=== PATIENT | female | born 1960 | race Caucasian/White ===

== ENCOUNTER 2021-10-04 01:51 | Observation (INO) ==
[2021-10-04 02:52] LABS: Bilirubin,Urine Negative (Negative); Blood,Urine Large (Negative); Clarity,Urine Ex.Turbid (Clear); Color,Urine Dark-Red (Yellow); Glucose,Urine (UA) Normal (Normal); Ketones,Urine Negative (Negative); Leukocyte Esterase,Urine Small (Negative); Nitrite,Urine Negative (Negative); Protein,Urine 200 mg/dL (Neg-Trace); Specific Gravity,Urine 1.022 (1.010-1.025); Urobilinogen,Urine Normal (Normal)
[2021-10-04] MEDS ORDERED: Isovue-370 500 ML BOTTLE IVP ONE (05:17)
[2021-10-04 05:52] LABS: Basophils % 0.1 %; Eosinophils # 0.2 K/mcL (0.0-0.6); Eosinophils % 1.7 %; Hematocrit 33.4 % (35.3-44.9); Hemoglobin 10.8 g/dL (11.5-15.4); Immature Granulocytes % 0.3 % (0-4); Lymphocytes # 2.9 K/mcL (0.6-4.6); Lymphocytes % 29.5 %; Mean Corpuscular HGB Conc 32.3 g/dL (31.6-35.5); Mean Corpuscular Volume 99.1 fL (83.0-100.0); Mean Platelet Volume 10.5 fL (9.4-12.4); Monocytes % 10.7 %; Neutrophils # 5.6 K/mcL (1.6-8.9); Platelet Count 295 K/mcL (140-400); Red Blood Count 3.37 M/mcL (3.82-4.97); Red Cell Distribution Width 12.2 % (11.5-14.5); Segmented Neutrophils % 57.7 %; White Blood Count 9.7 K/mcL (4.3-11.1)
[2021-10-04 06:12] LABS: Alanine Aminotransferase 8 Units/L (7-52); Albumin 3.4 g/dL (3.5-5.7); Albumin/Globulin Ratio 1.2 (1.1-2.2); Alkaline Phosphatase 39 Units/L (34-104); Aspartate Amino Transferase 10 Units/L (13-39); BUN/Creatinine Ratio 24 (6-26); Bilirubin,Indirect 0.3 mg/dL (0.0-1.0); Bilirubin,Total 0.3 mg/dL (0.3-1.0); Blood Urea Nitrogen 14 mg/dL (8-23); Calcium 9.3 mg/dL (8.6-10.3); Carbon Dioxide 26 mEq/L (23-29); Chloride 105 mEq/L (98-107); Globulin 2.9 g/dL (2.4-3.5); Glucose 99 mg/dL (70-105); Lipase 10 Units/L (11-82); Osmolality,Calculated 287 (280-300); Potassium 3.6 mEq/L (3.5-5.1); Sodium 138 mEq/L (136-145); Total Protein 6.3 g/dL (6.4-8.9); eGFR For African Americans > 60 (> 60); eGFR For Non-African Americans > 60 (> 60)
[2021-10-04] MEDS ORDERED: Naloxone 0.4 MG/ML INJ IVP PRN ×3 (08:38→13:49)
[2021-10-04] MEDS ORDERED: Ondansetron 4 MG/2 ML VIAL IVP PRN ×2 (08:38→13:49)
[2021-10-04] MEDS ORDERED: Acetaminophen 325 MG TABLET PO PRN (08:38)
[2021-10-04] MEDS ORDERED: 0.9 % Sodium Chloride 1,000 ML IVC SCH (08:45)
[2021-10-04] MEDS ORDERED: cefTRIAXone 1,000 MG in 0.9 % Sodium Chloride Mini Bag 100 ML IVP SCH (09:00)
[2021-10-04] MEDS ORDERED: *HR* FentaNYL (PF) 100 MCG/2 ML VIAL ONE ×3 (09:31→10:53)
[2021-10-04] MEDS ORDERED: Lidocaine -MPF 2% 5 ML VIAL ONE (09:31)
[2021-10-04] MEDS ORDERED: Ondansetron 4 MG/2 ML VIAL ONE (09:31)
[2021-10-04] MEDS ORDERED: *HR* Propofol 200 MG/20 ML VIAL IVP ONE (09:31)
[2021-10-04] MEDS ORDERED: *HR* FentaNYL (PF) 100 MCG/2 ML VIAL IVP PRN (10:06)
[2021-10-04] MEDS ORDERED: Nitroglycerin 0.4 MG TAB.SUBL SL PRN (10:06)
[2021-10-04] MEDS ORDERED: Albuterol 2.5 MG/3 ML NEBULIZER IH PRN (10:06)
[2021-10-04] MEDS ORDERED: Ipratropium Neb 0.5 MG NEBULIZER IH PRN (10:06)
[2021-10-04] MEDS ORDERED: Acetaminophen IV 1,000 MG/100 ML BAG IVPB ONE (10:11)
[2021-10-04] MEDS ORDERED: Acetaminophen IV 500 MG/50 ML BAG IVPB ONE (10:29)
[2021-10-04] MEDS ORDERED: Lidocaine HCL 4 ML Topical Solution (Laryng-O-Jet Kit Sterile Pak) TP ONE (11:37)
[2021-10-04] MEDS ORDERED: Sugammadex Sodium 200 MG/2 ML VIAL IV ONE (12:35)
[2021-10-04] MEDS: *HR* HYDROmorphone (PF) 1 MG/ML SYRINGE IVP PRN ×4 (12:57→13:24)
[2021-10-04] MEDS ORDERED: *HR* Belladonna Alkaloids/Opium 30 MG RECTAL SUPPOSITORY RC PRN (13:49)
[2021-10-04] MEDS: *HR* HYDROcodone/Acet 5/325 mg TABLET PO PRN ×2 (14:27→20:42)
[2021-10-04 15:00] LABS: INR 1.4; Prothrombin Time 15.5 Seconds (9.4-12.1)
[2021-10-04] MEDS: 0.9 % Sodium Chloride 1,000 ML IVC SCH (15:35)
[2021-10-04 18:56] LABS: Iron 47 mcg/dL (50-170)
[2021-10-04 19:36] LABS: % Iron Saturation 20 % (15-50); Transferrin 170 mg/dL (203-362)
[2021-10-04 19:50] LABS: Folate 15.8 ng/mL (3.0-16.0)
[2021-10-05] MEDS: *HR* HYDROcodone/Acet 5/325 mg TABLET PO PRN ×4 (02:18→16:19)
[2021-10-05 03:29] LABS: Hematocrit 22.5 % (35.3-44.9); Hemoglobin 7.4 g/dL (11.5-15.4); Immature Granulocytes % 0.5 % (0-4); Lymphocytes # 1.5 K/mcL (0.6-4.6); Lymphocytes % 12.8 %; Mean Corpuscular HGB Conc 32.9 g/dL (31.6-35.5); Mean Corpuscular Hemoglobin 32.6 pg (28.0-33.3); Mean Corpuscular Volume 99.1 fL (83.0-100.0); Mean Platelet Volume 11.3 fL (9.4-12.4); Monocytes # 0.7 K/mcL (0.0-1.3); Monocytes % 6.1 %; Neutrophils # 9.4 K/mcL (1.6-8.9); Platelet Count 251 K/mcL (140-400); Red Blood Count 2.27 M/mcL (3.82-4.97); Red Cell Distribution Width 12.5 % (11.5-14.5); Segmented Neutrophils % 80.6 %; White Blood Count 11.7 K/mcL (4.3-11.1)
[2021-10-05] MEDS: 0.9 % Sodium Chloride 1,000 ML IVC SCH (03:47)
[2021-10-05 04:01] LABS: BUN/Creatinine Ratio 31 (6-26); Blood Urea Nitrogen 15 mg/dL (8-23); Calcium 8.1 mg/dL (8.6-10.3); Carbon Dioxide 23 mEq/L (23-29); Chloride 108 mEq/L (98-107); Glucose 133 mg/dL (70-105); Osmolality,Calculated 287 (280-300); Potassium 4.1 mEq/L (3.5-5.1); Sodium 137 mEq/L (136-145); eGFR For African Americans > 60 (> 60); eGFR For Non-African Americans > 60 (> 60)
[2021-10-05] MEDS ORDERED: 0.9 % Sodium Chloride 250 ML IVC SCH (07:45)
[2021-10-05] MEDS: cefTRIAXone 1,000 MG in 0.9 % Sodium Chloride Mini Bag 100 ML IVP SCH (08:31)
[2021-10-05] MEDS: Gabapentin 100 MG CAPSULE PO SCH (20:46)
[2021-10-06 05:18] LABS: Basophils % 0.1 %; Eosinophils # 0.3 K/mcL (0.0-0.6); Eosinophils % 2.9 %; Hematocrit 23.6 % (35.3-44.9); Hemoglobin 7.7 g/dL (11.5-15.4); Immature Granulocytes % 0.3 % (0-4); Lymphocytes # 2.4 K/mcL (0.6-4.6); Lymphocytes % 27.7 %; Mean Corpuscular HGB Conc 32.6 g/dL (31.6-35.5); Mean Corpuscular Hemoglobin 32.8 pg (28.0-33.3); Mean Corpuscular Volume 100.4 fL (83.0-100.0); Mean Platelet Volume 10.7 fL (9.4-12.4); Monocytes # 0.6 K/mcL (0.0-1.3); Monocytes % 6.7 %; Neutrophils # 5.4 K/mcL (1.6-8.9); Platelet Count 269 K/mcL (140-400); Red Blood Count 2.35 M/mcL (3.82-4.97); Red Cell Distribution Width 12.6 % (11.5-14.5); Segmented Neutrophils % 62.3 %; White Blood Count 8.6 K/mcL (4.3-11.1)
[2021-10-06 05:36] LABS: BUN/Creatinine Ratio 30 (6-26); Blood Urea Nitrogen 17 mg/dL (8-23); Calcium 8.6 mg/dL (8.6-10.3); Carbon Dioxide 26 mEq/L (23-29); Chloride 108 mEq/L (98-107); Glucose 85 mg/dL (70-105); Osmolality,Calculated 289 (280-300); Potassium 3.7 mEq/L (3.5-5.1); Sodium 139 mEq/L (136-145); eGFR For African Americans > 60 (> 60); eGFR For Non-African Americans > 60 (> 60)
[2021-10-06] MEDS: Gabapentin 100 MG CAPSULE PO SCH (08:15)
[2021-10-06] MEDS: cefTRIAXone 1,000 MG in 0.9 % Sodium Chloride Mini Bag 100 ML IVP SCH (08:15)
[2021-10-06] MEDS ORDERED: Cyanocobalamin (B-12) 1,000 MCG TABLET PO SCH (09:00)
[2021-10-06 12:29] VITALS: BP 130/87; PULSE 76; TEMP 97.6; O2SAT 100
== END 2021-10-06 13:28 | disposition home or self-care (01) ==
LOC: EMEROOARM 01:51 → 3ANU 01:51
PROVIDERS: ADMIT General Practice; ATTEND General Practice

== ENCOUNTER 2022-04-13 06:12 | Inpatient (IN) ==
[2022-04-13] MEDS ORDERED: Iopamidol - 370 500 ML MLS IVP ONE (07:39)
[2022-04-13] MEDS ORDERED: Ondansetron 4 MG/2 ML VIAL IVP ONE (07:40)
[2022-04-13] MEDS ORDERED: *HR* HYDROmorphone (PF) 1 MG/ML SYRINGE IVP ONE ×3 (07:40→13:34)
[2022-04-13] MEDS ORDERED: 0.9 % Sodium Chloride 1,000 ML IVC ONE (07:41)
[2022-04-13 08:14] LABS: Bilirubin,Urine Negative (Negative); Blood,Urine Small (Negative); Clarity,Urine Ex.Turbid (Clear); Color,Urine Orange (Yellow); Glucose,Urine (UA) Normal (Normal); Ketones,Urine Negative (Negative); Leukocyte Esterase,Urine Large (Negative); Nitrite,Urine Positive (Negative); PH,Urine 7.5 pH Units (5.0-8.0); Protein,Urine >=300 mg/dL (Neg-Trace); Specific Gravity,Urine 1.014 (1.010-1.025); Urobilinogen,Urine Normal (Normal)
[2022-04-13 08:20] LABS: Bacteria,Urine Few per hpf (None-Few); RBC,Urine 0-3 per hpf (0-3); WBC,Urine TNTC per hpf (0-3)
[2022-04-13 08:27] LABS: Basophils % 0.1 %; Hematocrit 24.5 % (35.3-44.9); Immature Granulocytes % 0.3 % (0-4); Lymphocytes # 1.2 K/mcL (0.6-4.6); Lymphocytes % 9.1 %; Mean Corpuscular HGB Conc 32.7 g/dL (31.6-35.5); Mean Corpuscular Hemoglobin 31.6 pg (28.0-33.3); Mean Corpuscular Volume 96.8 fL (83.0-100.0); Mean Platelet Volume 11.5 fL (9.4-12.4); Monocytes # 1.2 K/mcL (0.0-1.3); Neutrophils # 11.1 K/mcL (1.6-8.9); Platelet Count 192 K/mcL (140-400); Red Blood Count 2.53 M/mcL (3.82-4.97); Red Cell Distribution Width 14.9 % (11.5-14.5); Segmented Neutrophils % 81.5 %; White Blood Count 13.6 K/mcL (4.3-11.1)
[2022-04-13 09:42] LABS: Alanine Aminotransferase 7 Units/L (7-52); Albumin 2.8 g/dL (3.5-5.7); Albumin/Globulin Ratio 0.8 (1.1-2.2); Alkaline Phosphatase 29 Units/L (34-104); Aspartate Amino Transferase 10 Units/L (13-39); BUN/Creatinine Ratio 33 (6-26); Bilirubin,Indirect 0.3 mg/dL (0.0-1.0); Bilirubin,Total 0.3 mg/dL (0.3-1.0); Blood Urea Nitrogen 43 mg/dL (8-23); Calcium 8.7 mg/dL (8.6-10.3); Carbon Dioxide 19 mEq/L (23-29); Chloride 102 mEq/L (98-107); Globulin 3.5 g/dL (2.4-3.5); Glucose 131 mg/dL (70-105); Lipase < 3 Units/L (11-82); Osmolality,Calculated 281 (280-300); Potassium 4.8 mEq/L (3.5-5.1); Sodium 129 mEq/L (136-145); Total Protein 6.3 g/dL (6.4-8.9)
[2022-04-13] MEDS ORDERED: Ondansetron 4 MG/2 ML VIAL IVP PRN (11:58)
[2022-04-13] MEDS ORDERED: Naloxone 0.4 MG/ML INJ IVP PRN (11:58)
[2022-04-13] MEDS ORDERED: cefTRIAXone 1,000 MG in 0.9 % Sodium Chloride 10 ML IVP SCH (12:00)
[2022-04-13] MEDS ORDERED: *HR* OxyCODONE Immed Rel 5 MG TABLET PO PRN ×2 (13:40)
[2022-04-13] MEDS: 0.9 % Sodium Chloride 1,000 ML IVC SCH ×2 (13:48→23:30)
[2022-04-13] MEDS: Piperacillin/Tazobactam 3.375 GM in 0.9 % Sodium Chloride Mini Bag 100 ML IVPB SCH ×2 (13:49→21:23)
[2022-04-13] MEDS ORDERED: Piperacillin/Tazobactam 3.375 GM VIAL ONE (14:48)
[2022-04-13] MEDS ORDERED: 0.9 % Sodium Chloride 1,000 ML IVC SCH (15:30)
[2022-04-13] MEDS: *HR* HYDROmorphone PCA *PREMADE* 20 MG/1MG/ML (20mL) PCA VIAL IVC PRN (16:31)
[2022-04-13 17:41] LABS: Calcium 7.5 mg/dL (8.6-10.3); Potassium 4.2 mEq/L (3.5-5.1)
[2022-04-13] MEDS: *HR* Heparin 5,000 UNIT/ML VIAL SQ SCH (17:59)
[2022-04-13] MEDS ORDERED: Sennosides/Docusate Sodium TABLET PO SCH (21:00)
[2022-04-13] MEDS ORDERED: Gabapentin 300 MG CAPSULE PO SCH (21:00)
[2022-04-13] MEDS: Gabapentin 300 MG CAPSULE PO SCH (21:24)
[2022-04-14 04:20] LABS: Basophils % 0.1 %; Eosinophils % 0.1 %; Hematocrit 20.7 % (35.3-44.9); Hemoglobin 6.5 g/dL (11.5-15.4); Immature Granulocytes % 0.4 % (0-4); Lymphocytes # 1.6 K/mcL (0.6-4.6); Lymphocytes % 12.3 %; Mean Corpuscular HGB Conc 31.4 g/dL (31.6-35.5); Mean Corpuscular Hemoglobin 31.6 pg (28.0-33.3); Mean Corpuscular Volume 100.5 fL (83.0-100.0); Mean Platelet Volume 11.4 fL (9.4-12.4); Monocytes # 1.4 K/mcL (0.0-1.3); Monocytes % 10.6 %; Neutrophils # 10.2 K/mcL (1.6-8.9); Platelet Count 157 K/mcL (140-400); Red Blood Count 2.06 M/mcL (3.82-4.97); Red Cell Distribution Width 15.1 % (11.5-14.5); Segmented Neutrophils % 76.5 %; White Blood Count 13.4 K/mcL (4.3-11.1)
[2022-04-14 04:37] LABS: Calcium 7.6 mg/dL (8.6-10.3); Magnesium 1.5 mg/dL (1.6-2.6); Phosphorous 3.2 mg/dL (2.7-4.5); Potassium 3.9 mEq/L (3.5-5.1)
[2022-04-14] MEDS: Piperacillin/Tazobactam 3.375 GM in 0.9 % Sodium Chloride Mini Bag 100 ML IVPB SCH ×3 (05:01→20:30)
[2022-04-14] MEDS: *HR* Heparin 5,000 UNIT/ML VIAL SQ SCH (05:01)
[2022-04-14] MEDS: Sodium Bicarbonate 75 MEQ in 0.45 % Sodium Chloride 1,000 ML IVC SCH (08:46)
[2022-04-14] MEDS: Gabapentin 300 MG CAPSULE PO SCH ×2 (08:46→20:31)
[2022-04-14 09:20] LABS: Hematocrit 20.9 % (35.3-44.9); Hemoglobin 6.7 g/dL (11.5-15.4)
[2022-04-14] MEDS ORDERED: *HR* FentaNYL PATCH 50 MCG PATCH TD SCH (10:00)
[2022-04-14] MEDS: polyethylene glycoL 3350 17 GM POWD.PACK PO SCH (12:30)
[2022-04-14] MEDS: Nicotine 21 MG PATCH.TD24 TD SCH (12:30)
[2022-04-14] MEDS: Sennosides/Docusate Sodium TABLET PO SCH (20:31)
[2022-04-15] MEDS: Sodium Bicarbonate 75 MEQ in 0.45 % Sodium Chloride 1,000 ML IVC SCH (04:39)
[2022-04-15] MEDS: Piperacillin/Tazobactam 3.375 GM in 0.9 % Sodium Chloride Mini Bag 100 ML IVPB SCH (04:40)
[2022-04-15 05:57] LABS: Basophils % 0.1 %; Eosinophils # 0.3 K/mcL (0.0-0.6); Eosinophils % 2.1 %; Hematocrit 24.3 % (35.3-44.9); Hemoglobin 7.8 g/dL (11.5-15.4); Immature Granulocytes % 0.6 % (0-4); Lymphocytes # 1.5 K/mcL (0.6-4.6); Lymphocytes % 12.2 %; Mean Corpuscular HGB Conc 32.1 g/dL (31.6-35.5); Mean Corpuscular Hemoglobin 30.7 pg (28.0-33.3); Mean Corpuscular Volume 95.7 fL (83.0-100.0); Mean Platelet Volume 11.3 fL (9.4-12.4); Monocytes # 1.2 K/mcL (0.0-1.3); Monocytes % 9.7 %; Neutrophils # 9.1 K/mcL (1.6-8.9); Platelet Count 156 K/mcL (140-400); Red Blood Count 2.54 M/mcL (3.82-4.97); Red Cell Distribution Width 17.3 % (11.5-14.5); Segmented Neutrophils % 75.3 %
[2022-04-15 07:31] VITALS: O2SAT 94
[2022-04-15 08:54] LABS: Calcium 8.2 mg/dL (8.6-10.3); Magnesium 1.8 mg/dL (1.6-2.6); Phosphorous 2.7 mg/dL (2.7-4.5); Potassium 3.7 mEq/L (3.5-5.1)
[2022-04-15] MEDS: *HR* HYDROmorphone PCA *PREMADE* 20 MG/1MG/ML (20mL) PCA VIAL IVC PRN (09:01)
[2022-04-15] MEDS: Gabapentin 300 MG CAPSULE PO SCH (09:45)
[2022-04-15] MEDS: Sennosides/Docusate Sodium TABLET PO SCH (09:45)
[2022-04-15] MEDS: Nicotine 21 MG PATCH.TD24 TD SCH (09:45)
[2022-04-15] MEDS: polyethylene glycoL 3350 17 GM POWD.PACK PO SCH (09:46)
[2022-04-15 12:54] VITALS: BP 140/58; PULSE 68; TEMP 98.3
== END 2022-04-15 13:34 | disposition hospice, home (50) | DRG 720 ==
LOC: EMEROOARM 06:12 → 3ANU 06:12 → SUATTDRO 12:33 → 3ANU 14:11
PROVIDERS: ADMIT Internal Medicine; ATTEND Internal Medicine